=== PATIENT | male | born 1995 | race Caucasian/White ===

== ENCOUNTER 2024-10-30 09:29 | Outpatient (CLI) | payer BC, SELFPAY ==
[2024-10-30 09:48] LABS: Basophils # 0.1 K/mm3 (0-0.2); Basophils % 0.9 % (0.1-2.0); Eosinophils # 0.1 K/mm3 (0.0-0.4); Eosinophils % 1.6 % (0.1-12.0); Hematocrit 46.5 % (42.0-52.0); Hemoglobin 16.3 g/dL (14.1-18.0); Lymphocytes # 2.9 K/mm3 (0.7-4.5); Lymphocytes % 35.4 % (10-50); Mean Corpuscular HGB Conc 35.1 g/dL (31.8-35.4); Mean Corpuscular Hemoglobin 30.8 pg (27.0-31.2); Mean Corpuscular Volume 87.7 fl (80-94); Mean Platelet Volume 8.9 fl (7.4-10.4); Monocytes # 0.7 K/mm3 (0.1-1.0); Monocytes % 8.8 % (1.7-9.3); Neutrophils # 4.2 K/mm3 (1.8-7.8); Neutrophils % 52.3 % (37.0-80.0); Platelet Count 438 K/mm3 (142-424); Red Cell Distribution Width 12.6 % (11.5-17.5); White Blood Count 8.1 K/mm3 (4.8-10.8)
[2024-10-30 10:41] LABS: Albumin Level 4.6 g/dl (3.5-5.0)
[2024-10-30 10:42] LABS: Chloride 105 mmol/L (98-107); Potassium 4.6 mmoL/L (3.5-5.1); Sodium 140 mmol/L (136-145)
[2024-10-30 10:44] LABS: Bilirubin,Unconjugated 0.7 mg/dL (0.0-1.1); Blood Urea Nitrogen 12 mg/dl (9-20); Estimated Glomerular Filt Rate 114 ml/min (>60); GFR (African American) 138 ML/MIN (>60)
[2024-10-30 10:45] LABS: Alanine Aminotransferase 74 U/L (12-78); Alkaline Phosphatase 79 U/L (38-126); Anion Gap 13.6 mEq/L (5-15); Aspartate Amino Transferase 45 U/L (17-59); Bilirubin,Direct 0.1 mg/dl (0.0-0.4); Bilirubin,Indirect 0.7 mg/dL (0.0-0.9); Bilirubin,Total 0.8 mg/dl (0.2-1.3); Calcium 9.7 mg/dl (8.4-10.2); Carbon Dioxide 26 mmol/L (22.0-30.0); Chol/HDL Ratio 6.4 (1-3.5); Cholesterol 216 mg/dl (140-200); Glucose 97 mg/dl (74-100); HDL Cholesterol 34 mg/dl (40-60); Total Protein,Serum 8.2 g/dl (6.3-8.2)
[2024-10-30 10:52] LABS: Triglycerides 456 mg/dl (30-150)
[2024-10-30 10:56] LABS: Direct LDL Cholesterol 89.47 mg/dL (100-129)
[2024-10-30 11:01] LABS: Free T4 (Free Thyroxine) 1.13 ng/dl (0.78-2.19)
[2024-10-30 11:18] LABS: Thyroid Stimulating Hormone 3.02 uIU/mL (0.465-4.68)
== END 2024-10-30 23:59 | disposition home or self-care (01) ==
PROVIDERS: Visit Provider Nurse Practitioner Family
DX: I10 Essential (primary) hypertension (principal)
CPT/HCPCS: 36415; 80048; 80061; 80076; 84439; 84443; 85025